=== PATIENT | male | born 1945 | race Caucasian/White ===

== ENCOUNTER 2016-11-26 21:19 | Emergency (ER) | payer BC, OTHER ==
[~2016-11-26] VITALS: Ht 170.2 cm; Wt 69.0 kg
[~2016-11-26 21:19] MED LIST: TAB-TAB PO
[2016-11-26 21:21] VITALS: BP 154/99; PULSE 88; RESP 18; TEMP 98.6; O2SAT 95
--- NOTE | 2016-11-26 21:49 | PD ---
Physical Exam Time Seen by Provider: 21:48 Narrative 71 y/o male was reaching overhead, felt a snap in R shoulder. Now has R shoulder/proximal arm pain, worse with movement. VSS seen at triage desk. Awaiting bed placement. Data Data Last Documented VS Vital Signs Date Time Temp Pulse Resp B/P Pulse Ox O2 Delivery O2 Flow Rate FiO2 11/26/16 21:21 98.6 88 18 154/99 95 MDM Medical Record Reviewed: Yes Supervised Visit with ROWDY: Yes Kieran Adkins Nov 26, 2016 21:49
--- NOTE | 2016-11-26 23:01 | RADRPT ---
EXAM DATE/TIME: 11/26/2016 22:35 [facility] COMPARISON: No previous studies available for comparison. INDICATIONS : Right humerus pain since today. Pt was at work using a drill overhead when he felt the pain and heard a "pop". MEDICAL HISTORY : None. SURGICAL HISTORY : None. ENCOUNTER: Initial ACUITY: 1 day PAIN SCORE: 5/10 LOCATION: Right humerus FINDINGS: Two view examination of the right humerus demonstrates no evidence of fracture or dislocation. Bony mineralization is normal. Mild degenerative changes of the shoulder. The soft tissue structures are i ntact. CONCLUSION: No acute fracture right humerus. Hansel Godinez MD on November 26, 2016 at 22:58 Board Certified Radiologist. This report was verified electronically.
--- NOTE | 2016-11-26 23:03 | RADRPT ---
EXAM DATE/TIME: 11/26/2016 22:39 [facility] COMPARISON: No previous studies available for comparison. INDICATIONS : Right anterior shoulder pain since today. Pt was at work using a drill overhead when he felt the pain and heard a "pop". MEDICAL HISTORY : None. SURGICAL HISTORY : None. ENCOUNTER: Initial ACUITY: 1 day PAIN SCORE: 5/10 LOCATION: Right shoulder FINDINGS: Multiple view examination of the right shoulder demonstrates the humerus to be intact. There is lucen cy through the scapula and nondisplaced fracture cannot be excluded. Acromioclavicular joint intact. There is normal range of motion between internal and external rotation. Bony mineralization is norm al. CONCLUSION: Lucency in the scapula, fracture cannot be excluded. Proximal humerus intact. Hansel Godinez MD on November 26, 2016 at 22:59 Board Certified Radiologist. This report was verified electronically.
[2016-11-26] MEDS ORDERED: HYDR-3533 PO (23:26)
[2016-11-26] MEDS ORDERED: ACETAMINOPHEN/HYDROcodone 325 MG/5 MG TAB PO ONE (23:30)
--- NOTE | 2016-11-26 23:34 | PD ---
HPI Chief Complaint: Injury Time Seen by Provider: 23:30 Travel History International Travel<30 days: No Contact w/Intl Traveler<30days: No Traveled to known affect area: No History of Present Illness HPI 71-year-old [id number] white male presents to emergency Department with complaints of right shoulder and upper arm pain. 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 He states that he had immediate pain with radiation into his right biceps. This occurred approximately 2 hours prior to arrival. He denies any numbness or tingling. He states that he feels slightly weak but is able to move his arm freely. He reports a left shoulder rotator cuff injury which was repaired in the past. He questions whether he could've or rotator cuff injury again. PFSH Past Medical History Narrative Medical Left rotator cuff repair Cancer: No Diabetes: No Glaucoma: No Hepatitis: No Hiatal Hernia: No Hypertension: No Thyroid Disease: No Tetanus Vaccination: < 5 Years Past Surgical History Narrative Surgical Left rotator cuff repair Cardiac Surgery: No Ear Surgery: No Endocrine Surgery: No Eye Surgery: Yes (RIGHT CATARACT SX) Genitourinary Surgery: No Gynecologic Surgery: No Neurologic Surgery: No Oral Surgery: No Pacemaker: No Thoracic Surgery: No Other Surgery: Yes Social History Alcohol Use: Yes (SOCIALLY) Tobacco Use: No Substance Use: No Allergies-Medications (Allergen,Severity, Reaction): Coded Allergies: No Known Allergies (Verified , 11/26/16) Reported Meds & Prescriptions Reported Meds & Active Scripts Active Lortab (Hydrocodone-Acetaminophen) 5-325 Mg Tab 1 Tab PO Q6H PRN Reported Multivitamin (Multivitamins) 1 Tab Tab 1 Tab PO DAILY Review of Systems Except as stated in HPI: all other systems reviewed are Neg Musculoskeletal: Positive: Myalgias, Arthralgias, Weakness, Pain, No: Limited ROM Physical Exam Narrative GENERAL: This is a well-nourished, well-developed patient, in no apparent distress. SKIN: No rashes, ecchymoses or lesions. Warm and dry. HEAD: Atraumatic. Normocephalic. EYES: PERRL, EOMI, no discharge or injection. No scleral icterus. EARS: Clear NOSE: Nasal turbinates appear normal. THROAT: Mucosa pink and moist. Airway patent. NECK: Trachea midline. supple, moves head freely. LUNGS: Clear to auscultation. CV: Regular in rhythm. ABDOMEN: Soft nontender. EXT: No clubbing cyanosis or edema. Examination the right upper extremity reveals no obvious joint effusion. He has mild crepitus with range of motion of the shoulder. Patient has full range of motion. Negative drop test. Negative apprehension test. Patient has mild tenderness with palpation of the anterior shoulder. I see no obvious deformity of the biceps compared to the left. He has good audit intern. He has full range of motion. Data Data Last Documented VS Vital Signs Date Time Temp Pulse Resp B/P Pulse Ox O2 Delivery O2 Flow Rate FiO2 11/26/16 21:21 98.6 88 18 154/99 95 Orders Shoulder, Complete (>2vws) (11/26/16 ) Humerus (Min 2vws) (11/26/16 ) Acetamin-Hydrocod 325-5 Mg ([place] 5-325 (11/26/16 23:30) MDM Medical Decision Making Medical Screen Exam Complete: Yes Emergency Medical Condition: Yes Medical Record Reviewed: Yes Interpretation(s) Right shoulder: There is a slight irregularity of the scapula which is a possible fracture but the patient's pain is not in this area so I suspect this is a over read and not a true fracture. Right humerus: Negative for fracture. Differential Diagnosis MDM: High Differential diagnoses: Fracture, sprain, strain, dislocation, contusion, neurovascular injury Narrative Course X-rays of the shoulder and humerus are negative for acute bony injury. Patient has good range of motion and good strength. Patient's given Lortab 5 mg by mouth for pain This is right shoulder strain Diagnosis Primary Impression: Sprain of right shoulder Qualified Code: S43.401A - Sprain of right shoulder, unspecified shoulder sprain type, initial encounter Patient Instructions: General Instructions, Narcotic given in the ED Additional Instructions: Rest. Ice. Lortab for pain. Follow-up with workman's comp the next 3-5 days. Return to the ER for any problems. Scripts Hydrocodone-Acetaminophen (Lortab)5-325 Mg Tab1 Tab PO Q6H PRN (PAIN) #20 TAB Prov:Garth Denton MD 11/26/16 Disposition: 01 DISCHARGE HOME Condition: Stable Preston Carbajal Nov 26, 2016 23:34
== END 2016-11-27 00:47 | disposition home or self-care (01) ==
LOC: NEPK 21:19
DX: S43.401A Unspecified sprain of right shoulder joint, initial encounter (principal); X50.1XXA Overexertion from prolonged static or awkward postures, initial encounter; Y93.89 Activity, other specified; Y92.214 College as the place of occurrence of the external cause; Y99.0 Civilian activity done for income or pay
CPT/HCPCS: 73030; 73060; 99283